=== PATIENT | female | born 1955 | race Two or more races ===

== ENCOUNTER 2024-08-07 08:23 | Inpatient (IN) | payer OTHER ==
[~2024-08-07] VITALS: Ht 154.9 cm; Wt 108.0 kg
[2024-08-07 08:17] VITALS: BP 110/72
[~2024-08-07 08:23] MED LIST: CENTRUM CHEWAB1 EAC2 PO; FOSAMAX70 MG; LIPITOR20 MG; OMEGA-31000 MG
[2024-08-07 08:36] LABS: URINE APPEARANCE Cloudy; URINE BILIRRUBIN Negative (NEGATIVE); URINE BLOOD Negative; URINE COLOR Yellow; URINE GLUCOSE Negative (NEGATIVE); URINE KETONE Negative (NEGATIVE); URINE LEUKOCYTE Trace; URINE NITRATE Negative; URINE PROTEIN Negative (NEGATIVE); URINE UROBILINOGEN 0.2 E.U./dl
[2024-08-07 08:38] LABS: HEMATOCRIT 44.4 % (36.0-45.00); HEMOGLOBIN 15.1 g/dL (12.0-15.00); MEAN CELL VOLUME 91.6 fL (80.00-100.00); MEAN CORPUSCULAR HEMOGLOBIN 31.1 pg (27.00-32.0); MEAN CORPUSCULAR HGB CONC 33.9 g/dl (32.0-36.0); PLATELET COUNT 228 K/uL (150-450); RED BLOOD COUNT 4.84 M/uL (4.00-6.00)
[2024-08-07 08:42] LABS: URINE BACTERIA 3668.1 uL (0.0-1933); URINE RBC 9.8 uL (0.0-20.8); URINE WBC 28.4 uL (0.0-23.2)
[2024-08-07 09:07] LABS: INR 1.02; PARTIAL THROMBOPLASTIN TIME 27.7 SECONDS (22.0-34.0); PROTHROMBIN TIME 11.1 SECONDS (9.0-11.5)
[2024-08-07 09:12] LABS: COVID-19 AG NEGATIVE (NEGATIVE)
[2024-08-07 09:20] LABS: URINE CAST 0.14 uL (0.0-1.40)
[2024-08-07 09:22] LABS: URINE CRYSTALS MANY /HPF
[2024-08-07 10:00] LABS: ALBUMIN 3.9 gm/dL (3.4-5.0); BILIRUBIN TOTAL 0.46 mg/dL (0.3-1.2); CALCIUM 10.4 mg/dL (8.5-10.1); CHOL HDL RATIO 2.2 (0-5.0); CREATININE SERUM 1.1 mg/dL (0.55-1.02); GFR 48.96; POTASSIUM 5.25 mEq/L (3.5-5.1); TOTAL PROTEIN 7.9 gm/dL (6.4-8.2)
[2024-08-07 11:52] LABS: RH POSITIVE
[2024-08-15] MEDS ORDERED: KETOROLAC TROMETHAMINE 60 MG VIAL IM ONE (07:22)
[2024-08-15] MEDS ORDERED: TRANEXAMIC ACID 100MG/1ML (1000MG) AMPUL IV ONE (07:23)
[2024-08-15] MEDS ORDERED: VANCOMYCIN HCL 1,000 MG VIAL ONE ×2 (07:23→07:24)
[2024-08-15] MEDS ORDERED: LIDOCAINE HCL 1%/EPINEPHRINE 20ML VIAL IJ ONE (07:23)
[2024-08-15] MEDS ORDERED: BUPIVACAINE HCL/MPF 0.5% 30ML VIAL ONE (07:23)
[2024-08-15] MEDS ORDERED: POVIDONE-IODINE 118 ML BOTT TOP ONE (07:24)
[2024-08-15] MEDS ORDERED: MORPHINE SULFATE 4 MG/ML VIAL IV ONE (09:00)
[2024-08-15] MEDS ORDERED: ONDANSETRON HCL 2 MG/ML VIAL IV PRN (11:30)
[2024-08-15] MEDS ORDERED: SODIUM CHLORIDE 0.45 % 1,000 ML IV SCH (11:30)
[2024-08-15] MEDS ORDERED: OxyCODONE HCL 5 MG TABLET (ROXICODONE) PO PRN (11:30)
[2024-08-15] MEDS ORDERED: MORPHINE SULFATE 4 MG/ML CARTRIDGE IV PRN (11:30)
[2024-08-15] MEDS ORDERED: ACETAMINOPHEN 500 MG GEL..CAP PO SCH (12:00)
[2024-08-15] MEDS ORDERED: ENALAPRILAT DIHYDRATE 1.25 MG/ML VIAL IV PRN (16:00)
[2024-08-15] MEDS ORDERED: GABAPENTIN 300 MG CAPSULE PO SCH (17:00)
[2024-08-15 17:15] VITALS: BP 99/66; O2SAT 98
[2024-08-15 20:00] VITALS: BP 123/82
[2024-08-15] MEDS ORDERED: VANCOMYCIN HCL 1,000 MG VIAL IV SCH (21:00)
[2024-08-15] MEDS ORDERED: VANCOMYCIN HCL 1,000 MG in 0.9 % SODIUM CHLORIDE 250 ML IV SCH (21:00)
[2024-08-15 23:44] LABS: CALCIUM 9.3 mg/dL (8.5-10.1); CREATININE SERUM 0.88 mg/dL (0.55-1.02); GFR 63.34; POTASSIUM 4.54 mEq/L (3.5-5.1)
[2024-08-16] VITALS: BP 107/66
[2024-08-16 06:48] LABS: HEMATOCRIT 36.8 % (36.0-45.00); HEMOGLOBIN 12.8 g/dL (12.0-15.00); MEAN CELL VOLUME 90.1 fL (80.00-100.00); MEAN CORPUSCULAR HEMOGLOBIN 31.3 pg (27.00-32.0); MEAN CORPUSCULAR HGB CONC 34.8 g/dl (32.0-36.0); PLATELET COUNT 179 K/uL (150-450); RED BLOOD COUNT 4.08 M/uL (4.00-6.00); RED CELL DISTRIBUTION WIDTH 13.6 % (11.5-14.5)
[2024-08-16] MEDS ORDERED: ELIQUIS2.5 MG PO (07:51)
[2024-08-16] MEDS ORDERED: CIPRO500 MG PO (07:51)
[2024-08-16] MEDS ORDERED: PERCOCET 5-3251 EACH PO (07:51)
[2024-08-16 08:51] VITALS: BP 91/60
[2024-08-16] MEDS ORDERED: SENNOSIDES 1 TAB TABLET PO SCH (09:00)
[2024-08-16] MEDS ORDERED: APIXABAN 2.5 MG TABLET PO SCH (09:00)
[2024-08-16] MEDS ORDERED: ATORVASTATIN CALCIUM 20 MG TABLET PO SCH (09:00)
[2024-08-16 14:02] LABS: COVID-19 AG NEGATIVE (NEGATIVE)
[2024-08-16 16:00] VITALS: BP 130/77
[2024-08-17 00:14] VITALS: BP 134/82
[2024-08-17 06:12] LABS: HEMATOCRIT 36.1 % (36.0-45.00); HEMOGLOBIN 12.4 g/dL (12.0-15.00); MEAN CELL VOLUME 91.3 fL (80.00-100.00); MEAN CORPUSCULAR HEMOGLOBIN 31.3 pg (27.00-32.0); MEAN CORPUSCULAR HGB CONC 34.2 g/dl (32.0-36.0); PLATELET COUNT 199 K/uL (150-450); RED BLOOD COUNT 3.95 M/uL (4.00-6.00); RED CELL DISTRIBUTION WIDTH 13.1 % (11.5-14.5)
[2024-08-17 08:13] VITALS: BP 99/56
[2024-08-17] MEDS ORDERED: IRON FUM,PS/FOLIC ACID/VITC/B3 1 CAP CAPSULE PO SCH (09:00)
[2024-08-17 16:50] VITALS: BP 114/74
== END 2024-08-17 20:09 | DRG 470 ==
LOC: O/R 08-15 04:47 → SURH 08-15 07:00 → OB/GYN 08-15 15:08
PROVIDERS: ADMIT Orthopaedic Surgery; ATTEND Orthopaedic Surgery
PROC: 0SUD07Z Supplement Left Knee Joint with Autologous Tissue Substitute, Open Approach (ICD-10-PCS; 2024-08-15)
PROC: 0SRD0J9 Replacement of Left Knee Joint with Synthetic Substitute, Cemented, Open Approach (ICD-10-PCS; principal; 2024-08-15 07:00)
DX: M17.12 Unilateral primary osteoarthritis, left knee (principal); M22.12 Recurrent subluxation of patella, left knee; M81.0 Age-related osteoporosis without current pathological fracture; G47.33 Obstructive sleep apnea (adult) (pediatric); J45.998 Other asthma

== ENCOUNTER 2025-02-19 10:00 | Inpatient (IN) | payer OTHER ==
[~2025-02-19] VITALS: Ht 154.9 cm; Wt 94.3 kg
[~2025-02-19 10:00] MED LIST changes: +CIPRO500 MG PO; +ELIQUIS2.5 MG PO; +PERCOCET 5-3251 EACH PO
[2025-02-19 11:04] VITALS: BP 141/80
[2025-02-19 15:40] LABS: COVID-19 AG NEGATIVE (NEGATIVE)
[2025-02-27] MEDS ORDERED: BUPIVACAINE HCL/MPF 0.5% 30ML VIAL ONE (06:37)
[2025-02-27] MEDS ORDERED: KETOROLAC TROMETHAMINE 60 MG VIAL IM ONE (06:37)
[2025-02-27] MEDS ORDERED: VANCOMYCIN HCL 1,000 MG VIAL ONE ×2 (06:38→06:56)
[2025-02-27] MEDS ORDERED: LIDOCAINE HCL 1%/EPINEPHRINE 20ML VIAL IJ ONE (06:38)
[2025-02-27] MEDS ORDERED: MORPHINE SULFATE 4 MG/ML CARTRIDGE IV ONE (06:45)
[2025-02-27] MEDS ORDERED: TRANEXAMIC ACID 100MG/1ML (1000MG) AMPUL ONE (06:56)
[2025-02-27] MEDS ORDERED: ONDANSETRON HCL 2 MG/ML VIAL IV PRN (09:45)
[2025-02-27] MEDS ORDERED: SODIUM CHLORIDE 0.45 % 1,000 ML IV SCH (09:45)
[2025-02-27] MEDS ORDERED: OxyCODONE HCL 5 MG TABLET (ROXICODONE) PO PRN (09:45)
[2025-02-27] MEDS ORDERED: MORPHINE SULFATE 4 MG/ML CARTRIDGE IV PRN (09:45)
[2025-02-27] MEDS ORDERED: ACETAMINOPHEN 500 MG GEL..CAP PO SCH (12:00)
[2025-02-27 13:30] VITALS: BP 105/69; O2SAT 97
[2025-02-27 16:00] VITALS: BP 119/64; O2SAT 94
[2025-02-27] MEDS ORDERED: GABAPENTIN 300 MG CAPSULE PO SCH (17:00)
[2025-02-27] MEDS ORDERED: VANCOMYCIN HCL 1,000 MG in 0.9 % SODIUM CHLORIDE 250 ML IV SCH (21:00)
[2025-02-27 23:40] VITALS: BP 124/78; O2SAT 95
[2025-02-28 05:13] LABS: BASO % 0.2 % (0.1-1.2); EOS # 0.43 (0.04-0.54); EOS % 5.1 % (0.7-7.0); LYMPH # 1.08 (1.18-3.74); LYMPH % 12.9 % (19.3-53.1); MEAN PLATELET VOLUME 10.60 fl (9.4-12.4); MONO # 0.82 (0.24-0.82); MONO % 9.8 % (4.7-12.5); NEUT # 6.01 (1.56-6.13); NEUT % 71.9 % (34.0-71.1); RED CELL DISTRIBUTION WIDTH 13.6 % (11.6-14.4)
[2025-02-28] MEDS ORDERED: ELIQUIS2.5 MG PO (07:54)
[2025-02-28] MEDS ORDERED: CIPRO500 MG PO (07:54)
[2025-02-28] MEDS ORDERED: PERCOCET 5-3251 EACH PO (07:54)
[2025-02-28 08:00] VITALS: BP 104/65; O2SAT 97
[2025-02-28] MEDS ORDERED: APIXABAN 2.5 MG TABLET PO SCH (09:00)
[2025-02-28] MEDS ORDERED: SENNOSIDES 1 TAB TABLET PO SCH (09:00)
[2025-02-28 16:00] VITALS: BP 152/73; O2SAT 98
[2025-03-01 00:30] VITALS: BP 133/68; O2SAT 97
[2025-03-01 06:28] LABS: BASO % 0.2 % (0.1-1.2); EOS # 0.24 (0.04-0.54); EOS % 2.4 % (0.7-7.0); LYMPH # 1.28 (1.18-3.74); LYMPH % 13.0 % (19.3-53.1); MEAN PLATELET VOLUME 11.00 fl (9.4-12.4); MONO # 1.29 (0.24-0.82); NEUT # 7.01 (1.56-6.13); NEUT % 71.1 % (34.0-71.1); RED CELL DISTRIBUTION WIDTH 13.7 % (11.6-14.4)
[2025-03-01 06:56] LABS: MONO % 13.1 % (4.7-12.5)
[2025-03-01 08:44] VITALS: BP 126/68; O2SAT 96
[2025-03-01] MEDS ORDERED: IRON FUM,PS/FOLIC ACID/VITC/B3 1 CAP CAPSULE PO SCH (09:00)
[2025-03-01 12:27] LABS: COVID-19 AG NEGATIVE (NEGATIVE)
[2025-03-01 16:00] VITALS: BP 133/71; O2SAT 95
[2025-03-02 00:22] VITALS: BP 125/77; O2SAT 97
[2025-03-02 08:14] VITALS: BP 135/83; O2SAT 97
== END 2025-03-02 14:36 | DRG 470 ==
LOC: O/R 02-27 06:00 → SURH 02-27 10:00
PROVIDERS: ADMIT Orthopaedic Surgery; ATTEND Orthopaedic Surgery
PROC: 0MNN0ZZ Release Right Knee Bursa and Ligament, Open Approach (ICD-10-PCS; 2025-02-27)
PROC: 0SUC07Z Supplement Right Knee Joint with Autologous Tissue Substitute, Open Approach (ICD-10-PCS; 2025-02-27)
PROC: 0SRC0JZ Replacement of Right Knee Joint with Synthetic Substitute, Open Approach (ICD-10-PCS; principal; 2025-02-27 18:00)
DX: M17.11 Unilateral primary osteoarthritis, right knee (principal); M22.11 Recurrent subluxation of patella, right knee